=== PATIENT | male | born 1980 | race Caucasian/White ===

== ENCOUNTER 2020-08-10 13:17 | Emergency (ER) | payer OTHER, SELFPAY ==
--- NOTE | ~2020-08-10 | XR_ITS ---
EXAMINATION: XR chest 2V DATE: 08/10/2020 14:03 INDICATION: Chest pain and dizziness TECHNIQUE: frontal and lateral views of the chest were obtained. COMPARISON: Chest radiograph dated 11/07/2013 FINDINGS: The lungs remain clear with no focal airspace opacities, pulmonary edema, pleural effusion or pneumot horax. The cardiomediastinal silhouette is normal. Mild thoracic dextrocurvature with mild spondylosi s. IMPRESSION: 1. No acute cardiopulmonary disease. Reviewed, dictated and finalized at location A. OGEOLOGY PROFESSOR
[2020-08-10 13:25] VITALS: BP 167/97; PULSE 74; RESP 23; TEMP 36.9; O2SAT 99
[2020-08-10 13:33] VITALS: PULSE 78
--- NOTE | 2020-08-10 13:37 | ECG_ITS ---
Measurements Intervals [place] Rate: 72 P: 31 ME: 140 QRS: 7 QRSD: 98 T: 61 QT: 398 QTc: 437 Interpretive Statements SINUS RHYTHM DELAYED PRECORDIAL R/S TRANSITION BASELINE ARTIFACT- I, II, III, AVR, AVL, AVF, V3-V6 BORDERLINE ECG Electronically Signed On 08-10-2020 13:40:32 DB2 DEVELOPER by Adolph Butcher D.O.
[2020-08-10 13:48] LABS: Basophils Absolute Auto 0.1 K/mm3 (0.0-0.1); Basophils Percent Auto 0.6 % (0.2-1.2); Eosinophils Absolute Auto 0.7 K/mm3 (0-0.3); Hematocrit 44.9 % (42.0-52.0); Hemoglobin 15.7 g/dL (14.0-18.0); Immature Granulocyte Absolute 0.02 K/mm3 (0.00-0.031); Immature Granulocyte Percent A 0.2 % (0-0.5); Lymphocytes Absolute Auto 2.09 K/mm3 (0.9-3.2); Lymphocytes Percent Auto 25.2 % (18.3-44.2); Mean Corpuscular Hemoglobin 30.4 pg (26-34); Mean Corpuscular Volume 86.8 fl (80-100); Mean Platelet Volume 9.2 fl (7.4-10.4); Monocytes Absolute Auto 0.6 K/mm3 (0.1-0.6); Monocytes Percent Auto 7.7 % (2.6-8.5); Neutrophils Absolute Auto 4.8 K/mm3 (1.3-6.7); Neutrophils Percent Auto 58.3 % (45.5-73.1); Platelet Count Result 248 k/mm3 (150-375); Red Blood Count 5.17 M/mm3 (4.6-6.20); Red Cell Distribution Width 12.1 % (11.5-14.5); White Blood Count 8.3 K/mm3 (4.5-10.0)
[2020-08-10 13:58] LABS: INR 0.9; Prothrombin Time 12.8 Seconds (11.1-14.7)
[2020-08-10 14:04] LABS: Anion Gap 8 mmol/L (8-16); Blood Urea Nitrogen 16 mg/dL (9-20); Calcium 10.2 mg/dL (8.4-10.2); Carbon Dioxide 33 mmol/L (22-30); Chloride 100 mmol/L (98-107); Estimated CRCL calculation 85 ml/min; Estimated Glomerular Filt Rate > 60; Glucose 122 mg/dL (75-110); Potassium 3.7 mmol/L (3.4-5.0); Sodium 141 mmol/L (137-145)
[2020-08-10 14:15] VITALS: BP 149/89; PULSE 73; RESP 16; O2SAT 95
[2020-08-10 14:16] LABS: Troponin I < 0.012 ng/mL (0.000-0.034)
[2020-08-10] MEDS: KETOROLAC 15 MG/ML VIAL (*BKC) IV PUSH (14:32)
[2020-08-10] MEDS: MECLIZINE HCL 25 MG TABLET PO (14:33)
--- NOTE | 2020-08-10 16:02 | ED.CHESTPAIN ---
HPI - Chest Pain General Chief Complaint: Chest Pain Stated Complaint: chest pain Time Seen by Provider: 08/10/20 13:29 History of Present Illness HPI narrative: Patient is a 39-year-old male who presents ER with several issues. First issue that has been ongoing for last couple weeks is frontal headache related to sinusitis. He has been seen by his primary care doctor . He has been prescribed antibiotics. He also reports that during this time he started developing brief episodes where he gets very dizzy and his vision will be blurry for less than a second. This has been increasing in frequency and he says it is occurring every 10 to 15 minutes today. This is associated with nausea. Also reports that over the last couple days he has started to develop left-sided chest pain that last for 20 minutes at a time. Its located focally on the medial and lateral aspect of left pectoralis. No radiation into the arm. Related Data Home Medications Medication Instructions Recorded Confirmed cefuroxime axetil 08/10/20 lisinopril 08/10/20 Allergies Allergy/AdvReac Type Severity Reaction Status Date / Time No Known Allergies Allergy Verified 08/10/20 13:32 Review of Systems Review of Systems: All systems reviewed & are unremarkable except as noted in HPI and below Constitutional: Constitutional: Denies chills, Denies fever(s) and Denies weakness ENT: Reports dizziness, Reports nasal congestion and Denies sore throat Cardiovascular: Cardiovascular: Reports chest pain, Denies rapid heart rate and Denies radiating jaw, neck or arm pain Respiratory: Respiratory: Denies cough, Denies dyspnea and Denies wheezing Gastrointestinal: Gastrointestinal: Denies abdominal pain, Reports nausea and Denies vomiting Neurologic: Reports headache(s) PMFSH Past Medical History Medical History (Updated 08/10/20 @ 16:11 by Zaheer Peñaloza MD) Hypertension Surgical History Surgical History (Updated 08/10/20 @ 16:06 by Zaheer Peñaloza MD) H/O adenoidectomy History of myringotomy Social History Social History (Updated 08/10/20 @ 16:06 by Zaheer Peñaloza MD) Smoking status: Never smoker Exam Narrative: Exam Narrative: GENERAL: Well-appearing, well-nourished, and in no acute distress. HEAD: Normocephalic, atraumatic. ENT: Mucous membranes moist. Scars to tympanic membrane is without perforation or drainage. CHEST: Clear to auscultation. No respiratory distress. HEART: Regular rate and rhythm. Normal peripheral pulses. ABDOMEN: Soft, nontender, nondistended. EXTREMITIES: Normal range of motion. No edema. SKIN: Warm, dry, no rash. NEURO: Alert and oriented x3. Course Course Emergency Course: Nausea and dizziness resolved with meclizine. No chest pain here. Discharge home with follow-up with PCP. Will prescribe meclizine. Vital Signs Vital signs: Vital Signs Temperature 98.4 F 08/10/20 13:25 Pulse Rate 74 08/10/20 13:25 Respiratory Rate 23 H 08/10/20 13:25 Blood Pressure 167/97 H 08/10/20 13:25 Pulse Oximetry 99 08/10/20 13:25 Temperature 98.4 F 08/10/20 13:25 Pulse Rate 73 08/10/20 14:15 Respiratory Rate 16 08/10/20 14:15 Blood Pressure 149/89 H 08/10/20 14:15 Pulse Oximetry 95 08/10/20 14:15 MDM - Chest Pain Lab Data Result diagrams: 08/10/20 13:39 08/10/20 13:39 Labs: Lab Results 08/10/20 08/10/20 08/10/20 Range/Units 13:39 13:39 13:39 WBC 8.3 (4.5-10.0) K/mm3 RBC 5.17 (4.6-6.20) M/mm3 Hgb 15.7 (14.0-18.0) g/dL Hct 44.9 (42.0-52.0) % MCV 86.8 (80-100) fl MCH 30.4 (26-34) pg MCHC 35.0 (32-36) g/dl RDW 12.1 (11.5-14.5) % Plt Count 248 (150-375) k/mm3 MPV 9.2 (7.4-10.4) fl Immature Gran % (Auto) 0.2 (0-0.5) % Neut % (Auto) 58.3 (45.5-73.1) % Lymph % (Auto) 25.2 (18.3-44.2) % Wilkin % (Auto) 7.7 (2.6-8.5) % Eos % (Auto) 8.0 H (0-4.4) % Baso % (Auto)
[2020-08-10 16:26] VITALS: BP 135/99; PULSE 74; RESP 16; O2SAT 98
== END 2020-08-10 16:25 | disposition home or self-care (01) ==
PROVIDERS: Emergency Provider Emergency Medicine; PCP Family Medicine Adolescent Medicine
DX: R42 Dizziness and giddiness (principal); R07.9 Chest pain, unspecified; I10 Essential (primary) hypertension; R94.31 Abnormal electrocardiogram [ECG] [EKG]
CPT/HCPCS: 36415; 71046; 80048; 84484; 85025; 85610; 85730; 93005; 96374; 99284; A9270; J1885

== ENCOUNTER 2021-03-15 12:26 | Outpatient (CLI) | payer OTHER, SELFPAY ==
--- NOTE | 2021-03-15 16:06 | WPDPFTINT ---
PFT Procedure Performed PFT Procedure Performed Spirometry with Pre/Post Bronchodilator Plethysmography (Lung Vol) Diffusing Cap (DLCO) Flow Vol Loop PFT Interpretation This is a pulmonary function test with pre and post-bronchodilator spirometry, plethysmography and diffusing capacity. The test was performed and results interpreted in accordance with the 2019 and 2005 ATS/ERS Task Force guidelines respectively using the Global Lung Function Initiative-2012 reference equations. Patient demonstrated good effort and cooperation. Reproducibility criteria were met. The quality of the pre bronchodilator spirometry maneuver was Grade A and post bronchodilator spirometry maneuver was Grade A. Findings: Spirometry: The contour the inspiratory and expiratory flow tracing are normal. The pre bronchodilator FVC is 4.18 L, 91% predicted. The pre bronchodilator FEV1 is 3.37 L, 91% predicted. The FEV1: FVC ratio was 81%. The post bronchodilator FVC is 4.36 L, representing a 4% increase. The post bronchodilator FEV1 is 3.62 L, representing a 7% increase. Plethysmography: The total lung capacity is 5.98 L, 97% predicted. The functional residual capacity is 2.29 L, 76% predicted. The residual volume is 1.68 L, 104% predicted. Diffusing capacity: The absolute diffusion capacity is 30.2, 96% predicted. The diffusing capacity corrected for alveolar volume is 5.86, 115% predicted. Impression: The spirometry is normal without evidence of an obstructive abnormality. There is no significant improvement after inhaling a single dose of albuterol. The lung volumes are normal. The diffusing capacity is normal. There are no prior studies for comparison
== END 2021-03-15 12:27 | disposition home or self-care (01) ==
LOC: ANHPFT 12:28
PROVIDERS: PCP Family Medicine Adolescent Medicine; Visit Provider Family Medicine Adolescent Medicine
DX: R06.02 Shortness of breath (principal)
CPT/HCPCS: 94060; 94726; 94729

== ENCOUNTER → 2025-05-17 15:51 | Outpatient (CLI) | payer OTHER, SELFPAY ==
--- NOTE | ~2025-05-17 | XR_ITS ---
EXAMINATION: XR hand LT 2V, 05/17/2025 15:50 [employer] HISTORY: M65.4 - Radial styloid tenosynovitis [de Quervain] COMPARISON: No comparisons available. Findings: No acute fracture or malalignment. No significant degenerative changes. Soft tissues unremarkable. Impression: No acute fracture or malalignment. Reviewed, dictated and finalized at location P. [employer] Impression: No acute fracture or malalignment.
== END ==
LOC: EXPCRAD 15:52
PROVIDERS: PCP Nurse Practitioner Family; Visit Provider Nurse Practitioner Family
DX: M65.4 Radial styloid tenosynovitis [de Quervain] (principal)
CPT/HCPCS: 73120